=== PATIENT | male | born 2005 | race Caucasian/White ===

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

== ENCOUNTER → 2025-05-05 | Outpatient (CLI) | payer OTHER, SELFPAY ==
--- NOTE | 2025-05-05 10:18 | US_ITS ---
PROCEDURE: ABD LIMITED W/ ELASTOGRAPHY, 05/05/2025 REASON FOR EXAM: ELEVATED LFTS COMPARISON: None TECHNIQUE: Grayscale and color Doppler imaging of the right upper quadrant was performed. Elastography was performed for non-invasive assessment of liver tissue stiffness utilizing a [employer] S-shear wave imaging unit. FINDINGS: Exam is somewhat limited by soft tissue attenuation. Liver: Echogenic. 14.6 cm in length. Gallbladder: No visualized stones, wall thickening or pericholecystic fluid. Reportedly, sonographic Vargas's was negative. Biliary tree: Unremarkable. CBD measures 4 mm. Pancreas: Partially obscured by shadowing bowel gas and soft tissue attenuation grossly unremarkable as visualized. Right kidney: Unremarkable. 11.1 cm in length. Other: No visualized free fluid. Hepatic elastography: Number of measurements: 6. US probe: CA1-7A. EQI median: 5.7 kPa EQI median velocity: 1.37 m/s IQR/Med: 21.9% (kPa) and 11.5% (m/s). If the IQR/Med is IQR/median >30% (for kPa) or >15% in m/s, the variance in the measurements is a large and the accuracy of the measurement may be in question. US/ABD Limited w/ Elastography IMPRESSION: 1. Appearance of the hepatic parenchyma most suggestive of hepatic steatosis or other chronic liver disease. Correlate with clinical and laboratory evaluation. 2. Liver stiffness is 5.7 kPa. Per the below 2020 SRU criteria, this rules out compensated advanced chronic liver disease in the absence of other known clinical signs. If there are known clinical signs, furth er testing may be needed for confirmation. 3. Additional description as above. Assessment is per the Update to the SRU Liver Elastography Consensus Statement (2020) Note that the above assessment of liver fibrosis is vendor-neutral and intended for use in fibrosis related to viral etiologies and non-alcoholic fatty-liver disease (NAFLD); in causes other than viral hepat itis and NAFLD, the cutoff values are currently not well established. In some patients with NAFLD, the cutoff values for cACLD may be lower (7-9 kPa). Note also that in the setting of elevated LFTs, nonfasting or vascular congestion, the stage of lifer fibrosis may be overestimated. Previous SRU reference values: <1.37 m/s (5.7kPa): No to mild fibrosis 1.37 m/s - 2.2 m/s: Moderate to severe fibrosis >2.2 m/s (15kPa): Significant fibrosis / cirrhosis Reading Location: [id number]
== END | disposition home or self-care (01) ==
PROVIDERS: PCP Family Medicine; Referring Provider Family Medicine; Visit Provider Family Medicine
DX: R79.89 Other specified abnormal findings of blood chemistry (principal)
CPT/HCPCS: 76705; 76981